=== PATIENT | female | born 1950 | race Two or more races ===

== ENCOUNTER → 2016-12-09 | Outpatient (CLI) | payer MEDICARE, BC ==
--- NOTE | 2016-12-09 09:13 | RADRPT ---
PROCEDURE: XR right knee. CLINICAL INDICATION: Pain TECHNIQUE: AP weightbearing, PA weightbearing, lateral weightbearing and sunrise views are availab le for review. COMPARISON: None available FINDINGS: There is calcific enthesopathy involving the anterior superior aspect of the patella. There is mild osteoarthrosis involving the medial tibial femoral compartment, lateral tibial femoral compartment a nd patellofemoral compartment. This is associated with mild osteophytosis. The osseous structures are otherwise normal in mineralization, architecture and alignment. No fract ures are identified. No osseous lesions are identified. The soft tissues are unremarkable. IMPRESSION: Calcific enthesopathy involving the anterior superior aspect of the patella. Mild osteoarthrosis involving the medial tibial femoral compartment, lateral tibial femoral compartm ent and patellofemoral compartment. RPTAT: HGDB .Patel Russell MD, MD Date Time Electronically viewed and signed by .Patel Russell MD, on 12/09/2016 09:12 .B/
== END | disposition home or self-care (01) ==
LOC: HKI 08:59
PROVIDERS: ATTEND Orthopaedic Surgery
DX: M17.11 Unilateral primary osteoarthritis, right knee (principal); M25.561 Pain in right knee
CPT/HCPCS: 73564; G0463

== ENCOUNTER → 2017-04-07 | Outpatient (CLI) | payer MEDICARE, BC ==
--- NOTE | 2017-04-07 16:44 | RADRPT ---
PROCEDURE: Limited x-ray of both lower extremities. CLINICAL INDICATION: Bilateral leg pain. TECHNIQUE: Single frontal view of both lower extremities was obtained from the hips to the calves. COMPARISON: Right knee radiographs dated 12/09/2016. FINDINGS: There are degenerative changes of the hips and knees with osteophytes and joint space narrowing. IMPRESSION: 1. Moderate degenerative changes of the hips and knees. RPTAT: QQ .Konstantin Hoyt MD, MD Date Time Electronically viewed and signed by .Konstantin Hoyt MD, MD on 04/07/2017 16:44 .R/
== END | disposition home or self-care (01) ==
LOC: HKI 09:40
PROVIDERS: ATTEND Orthopaedic Surgery
DX: M25.561 Pain in right knee (principal); M17.11 Unilateral primary osteoarthritis, right knee
CPT/HCPCS: 77073; G0463; 87081

== ENCOUNTER 2017-04-15 07:27 | Inpatient (IN) | payer MEDICARE, BC ==
[2017-04-15] VITALS (44 sets, daily range): BP systolic 99–166; BP diastolic 45–77; PULSE 76–86; RESP 16–19; Ht 160 cm; Wt 78.7 kg
[~2017-04-15] VITALS: Ht 160 cm; Wt 78.7 kg
[~2017-04-15 07:27] MED LIST: BUPIVACAINE LIPOSOME/PF 266 MG/20 ML VIAL INFIL ONE; CELECOXIB 400 MG PO X1 DOSE PO ONE; LACTATED RINGER'S 1,000 ML IV SCH; ONDANSETRON 4 MG INJ IV SCH; PAIN COCKTAIL - VANCOMYCIN IRR ONE; PREGABALIN 300 MG PO X1 PO ONE; SOD CHLORIDE 0.9% IV ONE; TRANEXAMIC ACID 780 MG in SOD CHLORIDE 0.9% 100 ML IVPB ONE; TRANEXAMIC ACID IV ONE; VANCOMYCIN 1 GM/NS 250 ML X1 BEFORE INCISION IVPB ONE; oxyCODONE (CR) 10 MG TAB [oxyCONTIN] X1 DOSE PO ONE; traMADOL 50 MG TAB X 1 DOSE PO ONE
[2017-04-15] MEDS ORDERED: LEVO88TA42 PO (08:04)
[2017-04-15] MEDS ORDERED: ASPI-664 PO (08:05)
[2017-04-15] MEDS ORDERED: TAMO10TA20 PO (08:10)
[2017-04-15] MEDS ORDERED: METO25TA7 PO (08:10)
[2017-04-15] MEDS ORDERED: FOL8 PO (08:11)
[2017-04-15] MEDS ORDERED: CRES10 PO (08:12)
[2017-04-15] MEDS ORDERED: FLUO10TA PO (08:13)
[2017-04-15] MEDS ORDERED: CETI-240 PO (08:14)
[2017-04-15] MEDS ORDERED: [UNRECOGNIZED DRUG - OTHER] PO (08:14)
[2017-04-15] MEDS ORDERED: EXPAREL NOTE (BUPIVICAINE LIPOSOMAL) XX SCH (09:00)
--- NOTE | 2017-04-15 10:12 | HPN ---
Date/Time of Note Date/Time of Note DATE: 04/15/17 TIME: 10:12 Interval H&P Admission Note Pt. seen H&P reviewed: No system changes No change from 04/09/17 by FRANCISCO Kennedy MD Apr 15, 2017 10:12
[2017-04-15] MEDS ORDERED: SODIUM CL BACTERIOSTATIC 30 ML INJ ONE (10:32)
[2017-04-15] MEDS ORDERED: VANCOMYCIN 1 GM INJ ONE (10:32)
[2017-04-15] MEDS ORDERED: POLYMYXIN B 500000 UNIT INJ ONE (10:32)
[2017-04-15] MEDS ORDERED: METOCLOPRAMIDE 10 MG INJ ONE (10:38)
[2017-04-15] MEDS ORDERED: DEXAMETHASONE 4 MG/ML 1 ML INJ ONE (10:38)
[2017-04-15] MEDS ORDERED: PROPOFOL 100 ML ONE (10:38)
[2017-04-15] MEDS ORDERED: MIDAZOLAM 1 MG/ML 2 ML INJ ONE (10:38)
[2017-04-15] MEDS ORDERED: FENTAnyl 50 MCG/ML VIAL ONE (10:39)
[2017-04-15] MEDS ORDERED: GENTAMICIN 80 MG INJ ONE (11:06)
[2017-04-15] MEDS ORDERED: EPHEDrine SULFATE 50 MG/5 ML SYG ONE (11:17)
[2017-04-15] MEDS ORDERED: HYDROmorphONE (0.2 MG/ML) 10ML SYG IV PRN ×3 (11:30)
[2017-04-15] MEDS ORDERED: LABETALOL HCL 20MG INJ IV PRN (11:30)
[2017-04-15] MEDS ORDERED: MEPERIDINE 25 MG INJ IV PRN (11:30)
[2017-04-15] MEDS ORDERED: hydrALAzine 20 MG INJ IV PRN (11:30)
[2017-04-15] MEDS ORDERED: ONDANSETRON 4 MG INJ IV PRN ×2 (11:30→13:30)
[2017-04-15] MEDS ORDERED: DIPHENHYDRAMINE 50 MG INJ IV PRN (11:30)
[2017-04-15] MEDS ORDERED: METOCLOPRAMIDE 10 MG INJ IV PRN (11:30)
[2017-04-15] MEDS ORDERED: VANCOMYCIN 1 GM INJ IRR ONE (11:43)
[2017-04-15] MEDS ORDERED: ONDANSETRON 4 MG INJ ONE (12:51)
--- NOTE | 2017-04-15 13:12 | OPR ---
Date/Time of Note Date/Time of Note DATE: 04/15/17 TIME: 13:11 Operative Report Preoperative Diagnosis Right Knee OA Postoperative Diagnosis Same Operation/Procedure Performed Right TKA Surgeon: FRANCISCO NIEVES MD pathology assistant: SAMI DHILLON Anesthesia: general, spinal Estimated Blood Loss: 50 - 100 ml's Specimens Bone and soft tissue Grafts/Implants Depuy TKA Complications: None FRANCISCO NIEVES MD Apr 15, 2017 13:12
[2017-04-15 13:26] LABS: HEMATOCRIT 37.2 % (37.0-47.0); HEMOGLOBIN 12.1 g/dl (12.0-16.0)
[2017-04-15] MEDS ORDERED: NACL 0.9% 3 ML SYG IV SCH (13:30)
[2017-04-15] MEDS ORDERED: MAGNESIUM HYDROXIDE 30ML CUP PO PRN (13:30)
[2017-04-15] MEDS ORDERED: oxyCODONE 5 MG TAB PO PRN (13:30)
[2017-04-15] MEDS ORDERED: HYDROmorphONE 1 MG/ML SYG IV PRN (13:30)
[2017-04-15] MEDS ORDERED: NA PHOSPHATE/BIPHOS 133 ML ENEMA PR PRN (13:30)
[2017-04-15] MEDS ORDERED: DIPHENHYDRAMINE 25 MG CAP PO PRN (13:30)
[2017-04-15] MEDS ORDERED: BISACODYL 10 MG SUPP PR PRN (13:30)
[2017-04-15] MEDS ORDERED: ASPIRIN (EC) 325 MG TAB PO ONE (13:30)
--- NOTE | 2017-04-15 13:51 | CONS ---
Date/Time of Note Date/Time of Note DATE: 04/15/17 TIME: 13:34 Assessment/Plan Assessment/Plan Additional Assessment/Plan 1. Post op right knee replacement. 2. HBP, to cont meds 3. Hx elev chol, will cont statin 4. Hypothyroid, will cont thyroid replacement 5. Will follow for sign and sxs of thromboembolic dz despite approp dvt prophylaxis Consultation Date/Type/Reason Admit Date/Time Apr 15, 2017 at 07:27 Date of Consultation: Apr 15, 2017 Reason for Consultation Medical Referring Provider: FRANCISCO NIEVES MD Hx of Present Illness Asked to eval the above after right total knee replacement now in recovery. Respiratory: No cough, No pleuritic pain, No shortness of breath Cardiovascular: No chest pain Gastrointestinal: no complaints Genitourinary: no complaints Musculoskeletal: No bone/joint pain Past Medical History Pt has hx HBP, elev chol, hypothyroidism, migraine headaches, back surgery. carpal tunnel surg. 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 Family History Significant Family History: other (+ Alz dz, kidney cancer) Social History Smoking Status: Former smoker Exam/Review of Systems Vital Signs Vitals Vital Signs Date Time Temp Pulse Resp B/P Pulse Ox O2 Delivery O2 Flow Rate FiO2 04/15/17 13:25 84 18 123/60 97 Nasal Cannula 04/15/17 13:01 98.2 Exam Neck: No jvd Respiratory: clear to auscultation Cardiovascular: regular rate and rhythm Gastrointestinal: soft Extremities: No edema (and no calf tend) Neurological: No focal weakness Results Result Diagram: 04/15/17 1321 Results 24 hrs Laboratory Tests Test 04/15/17 13:21 Hemoglobin 12.1 Hematocrit 37.2 Medications Medications Current Medications Miscellaneous Information 1 ea NOTE XX ; Start 04/15/17 at 09:00; Stop 04/15/17 at 20:00 Ondansetron HCl 4 mg 4 mg ONCE IV Last administered on 04/15/17t 09:44; Admin Dose 4 MG; Start 04/15/17 at 06:00; Stop 04/15/17 at 20:00 Lactated Ringer's (Lr) 1,000 ml @ 125 mls/hr Q8H IV ; Start 04/15/17 at 13:12 Celecoxib 200 mg 200 mg DAILY PO ; Start 04/16/17 at 09:00 Acetaminophen (Ofirmev 1000mg/ 100ml Iv) 100 ml @ 400 mls/hr Q6 IVPB ; Start at 18:00; Stop 04/16/17 at 17:59 Tramadol HCl (Ultram) 50 mg Q6 PO ; Start 04/15/17 at 18:00; Stop 04/18/17 at 17 :59 Oxycodone HCl (Roxicodone) 5 mg Q4H PRN PO PAIN LEVEL 1-3; Start 04/15/17 at 13 :30 Oxycodone HCl (Roxicodone) 10 mg Q4H PRN PO PAIN LEVEL 4-7; Start 04/15/17 at 13:30 Hydromorphone HCl 1 mg 1 mg Q3H PRN IV PAIN LEVEL 8-10; Start 04/15/17 at 13:30 Vancomycin HCl (Vancocin) 250 ml @ 125 mls/hr Q12 IVPB ; Start 04/15/17 at 21: 00; Stop 04/16/17 at 10:59 Ondansetron HCl (Zofran Inj) 4 mg Q6H PRN IV NAUSEA AND/OR VOMITING; Start at 13:30 Bisacodyl (Dulcolax Supp) 10 mg Q12H PRN [place] CONSTIPATION; Start 04/15/17 at 13: 30 Magnesium Hydroxide (Milk Of Mag) 30 ml BID PRN PO CONSTIPATION; Start at 13:30 Sodium Biphosphate/ Sodium Phosphate (Fleet Enema) 133 ml DAILY PRN [place] CONSTIPATION; Start 04/15/17 at 13:30 Docusate Sodium (Colace) 100 mg BID PO ; Start 04/15/17 at 21:00 Diphenhydramine HCl (Benadryl) 25 mg Q6H PRN PO PRURITUS; Start 04/15/17 at 13: 30 Aspirin (Ecotrin) 325 mg BID PO ; Start 04/16/17 at 09:00 Pantoprazole (Protonix Tab) 40 mg BID@06,18 PO ; Start 04/15/17 at 18:00 Pregabalin (Lyrica) 50 mg BID PO ; Start 04/15/17 at 21:00 ROMAN ZAMORA MD Apr 15, 2017 13:47
[2017-04-15 13:52] LABS: CALCIUM 8.8 mg/dl (8.4-10.2); CREATININE 0.67 mg/dl (0.44-1.00); POTASSIUM 4.3 mmol/L (3.5-5.1)
--- NOTE | 2017-04-15 14:08 | RADRPT ---
PROCEDURE: Right knee series. CLINICAL INDICATION: Postop TECHNIQUE: 2 views of the right knee are available for review. COMPARISON: None available FINDINGS: Patient is status post total right knee arthroplasty. Hardware is intact, and the alignment is jose sly anatomic. No erosions are seen. Postoperative changes including subcutaneous gas, drain, and sk in karlos are in place. IMPRESSION: 1. Total right knee arthroplasty with intact hardware. RPTAT: KK .Ibrahima Min MD, MD Date Time Electronically viewed and signed by .Ibrahima iMn MD, MD on 04/15/2017 14:08 .B/
--- NOTE | 2017-04-15 16:11 | PN ---
Date/Time of Note Date/Time of Note DATE: 04/15/17 TIME: 16:09 Assessment/Plan Lines/Catheters IV Catheter Type (from Nrsg): Peripheral IV Holley in Place (from Nrsg): Yes Assessment/Plan Assessment/Plan S/P Right TKA. Stable. -Drain -ABX -Pain meds -ASA/SCDs -OOB with PT Subjective 24 Hr Interval Summary Resting comfortably in PACU. Minimal pain. Exam/Review of Systems Vital Signs Vitals Vital Signs Date Time Temp Pulse Resp B/P Pulse Ox O2 Delivery O2 Flow Rate FiO2 04/15/17 14:59 82 18 108/69 98 Nasal Cannula 04/15/17 14:21 98.5 Exam Free Text/Dictation Hemovac: 120 cc Dressing dry 5/5 Tibialis Anterior, EHL, Gastroc Soleus, Peroneals Normal sensation Palpable DP/PT, CR < 2 Sec No distal edema XRAYS: Right TKA in good position Results Result Diagram: 04/15/17 1321 04/15/17 1321 FRANCISCO NIEVES MD Apr 15, 2017 16:11
[2017-04-15] MEDS: PANTOPRAZOLE (EC) 40 MG TAB PO SCH (18:01)
[2017-04-15] MEDS: traMADol 50 MG TAB PO SCH ×3 (18:01→23:31)
[2017-04-15] MEDS: ACETAMINOPHEN 1000MG/100ML IV 100 ML IVPB SCH ×2 (18:01→23:25)
[2017-04-15] MEDS: LACTATED RINGER'S 1,000 ML IV SCH ×2 (18:02→20:50)
[2017-04-15] MEDS: VANCOMYCIN 1 GM (PMX) 250 ML IVPB SCH (20:29)
[2017-04-15] MEDS: DOCUSATE SODIUM 100 MG CAP PO SCH (20:29)
[2017-04-15] MEDS: PREGABALIN 50 MG CAP PO SCH (20:29)
[2017-04-15] MEDS: ATORVASTATIN 40 MG TAB PO SCH (20:29)
[2017-04-16 00:30] VITALS: BP 142/63; RESP 19
[2017-04-16] MEDS: LACTATED RINGER'S 1,000 ML IV SCH ×3 (05:14→21:12)
[2017-04-16] MEDS: ACETAMINOPHEN 1000MG/100ML IV 100 ML IVPB SCH ×2 (05:14→12:29)
[2017-04-16] MEDS: PANTOPRAZOLE (EC) 40 MG TAB PO SCH ×2 (05:14→17:33)
[2017-04-16] MEDS: traMADol 50 MG TAB PO SCH ×3 (05:16→17:33)
[2017-04-16 05:35] LABS: HEMATOCRIT 31.8 % (37.0-47.0); HEMOGLOBIN 10.5 g/dl (12.0-16.0)
[2017-04-16 06:26] LABS: CALCIUM 8.4 mg/dl (8.4-10.2); CREATININE 0.7 mg/dl (0.44-1.00); POTASSIUM 4.6 mmol/L (3.5-5.1)
[2017-04-16] MEDS ORDERED: LEVOTHYROXINE 88 MCG TAB PO SCH (07:00)
--- NOTE | 2017-04-16 08:30 | CONS ---
Date/Time of Note Date/Time of Note DATE: 04/16/17 TIME: 08:28 Assessment/Plan Assessment/Plan Chief Complaint/Hosp Course Asked to eval the above after right total knee replacement now in recovery. Problems: Additional Assessment/Plan 1. Post op right knee replacement. 2. HBP, controlled 3. Hx elev chol, will cont statin 4. Hypothyroid, will cont thyroid replacement Consultation Date/Type/Reason Admit Date/Time Apr 15, 2017 at 07:27 Initial Consult Date 04/15/17 Type of Consultation: Medical Reason for Consultation Post op right knee replacement Referring Provider: FRANCISCO NIEVES MD Detailed Summary Respiratory: No shortness of breath Cardiovascular: No chest pain Gastrointestinal: no complaints Genitourinary: no complaints Musculoskeletal: bone/joint pain (mild right knee pain) Exam/Review of Systems Vital Signs Vitals Vital Signs Date Time Temp Pulse Resp B/P Pulse Ox O2 Delivery O2 Flow Rate FiO2 04/16/17 00:30 98.8 78 19 142/63 98 04/15/17 17:15 Nasal Cannula 2.0 Intake and Output 04/15/17 04/15/17 04/16/17 14:59 22:59 06:59 Intake Total 2000 ml 350 ml 2100 ml Output Total 620 ml 200 ml 1600 ml Balance 1380 ml 150 ml 500 ml Exam Neck: No jvd Respiratory: clear to auscultation Cardiovascular: regular rate and rhythm Gastrointestinal: soft Extremities: No edema (and no calf tend) Results Result Diagram: 04/16/17 0500 04/16/17 0500 Results 24 hrs Laboratory Tests Test 04/15/17 13:21 04/16/17 05:00 04/16/17 05:37 Hemoglobin 12.1 10.5 L Hematocrit 37.2 31.8 L Sodium Level 142 135 Potassium Level 4.3 4.6 Chloride Level 105 101 Carbon Dioxide Level 28 Anion Gap 14 11 Blood Urea Nitrogen 14 17 Creatinine 0.67 0.70 Glucose Level 128 114 Calcium Level 8.8 8.4 Lab Scanned Report REFERENCE LAB Medications Medications Current Medications Lactated Ringer's (Lr) 1,000 ml @ 125 mls/hr Q8H IV Last administered on t 05:14; Admin Dose 125 MLS/HR; Start 04/15/17 at 13:12 Celecoxib 200 mg 200 mg DAILY PO ; Start 04/16/17 at 09:00 Acetaminophen (Ofirmev 1000mg/ 100ml Iv) 100 ml @ 400 mls/hr Q6 IVPB Last administered on 04/16/17 05:14; Admin Dose 400 MLS/HR; Start 04/15/17 at 18:00 ; Stop 04/16/17 at 17:59 Tramadol HCl (Ultram) 50 mg Q6 PO Last administered on 04/16/17 05:16; Admin Dose 50 MG; Start 04/15/17 at 18:00; Stop 04/18/17 at 17:59 Oxycodone HCl (Roxicodone) 5 mg Q4H PRN PO PAIN LEVEL 1-3; Start 04/15/17 at 13 :30 Oxycodone HCl (Roxicodone) 10 mg Q4H PRN PO PAIN LEVEL 4-7; Start 04/15/17 at 13:30 Hydromorphone HCl 1 mg 1 mg Q3H PRN IV PAIN LEVEL 8-10; Start 04/15/17 at 13:30 Vancomycin HCl (Vancocin) 250 ml @ 125 mls/hr Q12 IVPB Last administered on 20:29; Admin Dose 125 MLS/HR; Start 04/15/17 at 21:00; Stop 04/16/17 at 10:59 Ondansetron HCl (Zofran Inj) 4 mg Q6H PRN IV NAUSEA AND/OR VOMITING; Start at 13:30 Bisacodyl (Dulcolax Supp) 10 mg Q12H PRN [place] CONSTIPATION; Start 04/15/17 at 13: 30 Magnesium Hydroxide (Milk Of Mag) 30 ml BID PRN PO CONSTIPATION; Start at 13:30 Sodium Biphosphate/ Sodium Phosphate (Fleet Enema) 133 ml DAILY PRN [place] CONSTIPATION; Start 04/15/17 at 13:30 Docusate Sodium (Colace) 100 mg BID PO Last administered on 04/15/17 20:29; Admin Dose 100 MG; Start 04/15/17 at 21:00 Diphenhydramine HCl (Benadryl) 25 mg Q6H PRN PO PRURITUS; Start 04/15/17 at 13: 30 Aspirin (Ecotrin) 325 mg BID PO ; Start 04/16/17 at 09:00 Pantoprazole (Protonix Tab) 40 mg BID@06,18 PO Last administered on 04/16/17 05:14; Admin Dose 40 MG; Start 04/15/17 at 18:00 Pregabalin (Lyrica) 50 mg BID PO Last administered on 04/15/17 20:29; Admin Dose 50 MG; Start 04/15/17 at 21:00 Fluoxetine HCl (Prozac) 10 mg DAILY PO ; Start 04/16/17 at 09:00 Folic Acid (Folic Acid) 0.8 mg DAILY PO ; Start 04/16/17 at 09:00 Metoprolol Succinate (Toprol Xl) 75 mg DAILY PO ; Start 04/16/17 at 09:00 Tamoxifen Citrate (Nolvadex) 10 mg DAILY PO ; Start 04/16/17 at 09:00 Loratadine (Claritin) 10 mg DAILY PO ; Start 04/16/17 at 09:00 Atorvastatin Calcium (Lipitor) 40 mg DAILY@21 PO ; Start 04/15/17 at 21:00 ROMAN ZAMORA MD Apr 16, 2017 08:30
[2017-04-16 08:36] VITALS: BP 189/76; RESP 19
--- NOTE | 2017-04-16 08:48 | PN ---
Date/Time of Note Date/Time of Note DATE: 04/16/17 TIME: 08:47 Assessment/Plan Lines/Catheters IV Catheter Type (from Nrsg): Peripheral IV Holley in Place (from Nrsg): Yes Assessment/Plan Assessment/Plan POD # 1. Stable. -Drain removed -OOB with PT -Pain meds -OOB with PT -ASA/SCDs -D/C to home tomorrow or Friday Subjective 24 Hr Interval Summary Resting comfortably. Minimal pain. Exam/Review of Systems Vital Signs Vitals Vital Signs Date Time Temp Pulse Resp B/P Pulse Ox O2 Delivery O2 Flow Rate FiO2 04/16/17 08:36 98.0 76 19 189/76 96 04/15/17 17:15 Nasal Cannula 2.0 Intake and Output 04/15/17 04/15/17 04/16/17 15:00 23:00 07:00 Intake Total 2000 ml 350 ml 2100 ml Output Total 620 ml 200 ml 1600 ml Balance 1380 ml 150 ml 500 ml Exam Free Text/Dictation Hemovac: 420 cc Dressing dry 5/5 Tibialis Anterior, EHL, Gastroc Soleus, Peroneals Normal sensation Palpable DP/PT, CR < 2 Sec No distal edema Results Result Diagram: 04/16/17 0500 04/16/17 0500 FRANCISCO NIEVES MD Apr 16, 2017 08:48
[2017-04-16] MEDS ORDERED: FLUOXETINE 10 MG CAP PO SCH (09:00)
[2017-04-16] MEDS: LEVOTHYROXINE 100 MCG TAB PO SCH (09:06)
[2017-04-16] MEDS: FOLIC ACID 0.4 MG TAB PO SCH (09:07)
[2017-04-16] MEDS: CELECOXIB 200 MG CAP PO SCH (09:07)
[2017-04-16] MEDS: TAMOXIFEN 10 MG TAB PO SCH (09:08)
[2017-04-16] MEDS: DOCUSATE SODIUM 100 MG CAP PO SCH ×2 (09:08→20:54)
[2017-04-16] MEDS: PREGABALIN 50 MG CAP PO SCH ×2 (09:09→21:02)
[2017-04-16] MEDS: ASPIRIN (EC) 325 MG TAB PO SCH ×2 (09:09→20:54)
[2017-04-16] MEDS: LORATADINE 10 MG TAB PO SCH (09:09)
[2017-04-16] MEDS: METOPROLOL (XL) 25 MG TAB PO SCH (09:10)
[2017-04-16] MEDS: VANCOMYCIN 1 GM (PMX) 250 ML IVPB SCH (09:13)
[2017-04-16 10:03] LABS: ADD UMIC YES; UR ASCORBIC ACID NEGATIVE (NEGATIVE); UR BILIRUBIN (Dip) NEGATIVE (NEGATIVE); UR BLOOD (Dip) 1+ mg/dL (NEGATIVE); UR CLARITY CLEAR (CLEAR); UR COLOR STRAW (YELLOW); UR GLUCOSE (Dip) NEGATIVE (NEGATIVE); UR KETONES (Dip) NEGATIVE (NEGATIVE); UR LEUKOCYTE ESTERASE (Dip) NEGATIVE Leu/ul (NEGATIVE); UR NITRITE (Dip) NEGATIVE (NEGATIVE); UR RBC 4 /HPF (0-5); UR TOTAL PROTEIN (Dip) NEGATIVE (NEGATIVE); UR UROBILINOGEN (Dip) NEGATIVE (NEGATIVE)
[2017-04-16 10:53] VITALS: BP 119/55; PULSE 82; RESP 18
--- NOTE | 2017-04-16 13:07 | OPR ---
Date/Time of Note Date/Time of Note DATE: 04/16/17 TIME: 13:02 Operative Report Preoperative Diagnosis Right Knee OA Postoperative Diagnosis Same Operation Performed Right TKA Surgeon: FRANCISCO NIEVES MD residential assistant: SAMI DHILLON Anesthesia: general, spinal Estimated Blood Loss: 50 - 100 ml's Specimens Bone and soft tissue Grafts/Implants Depuy TKA Complications: None Procedure Description DATE: 04/15/17 PREOPERATIVE DIAGNOSIS: Right knee osteoarthritis POSTOPERATIVE DIAGNOSIS: Right knee osteoarthritis OPERATION PERFORMED: Right total knee arthroplasty. SURGEON: Francisco Nievse MD DOOR TO DOOR SELLING DISTRIBUTOR: KACI Bains COMPONENTS USED: Sherwood attune size 5 femur, 4 tibial baseplate, 6 mm polyethylene, 35 patella ANESTHESIA: Spinal plus general endotracheal intubation, plus femoral nerve catheter. ANESTHESIOLOGIST: Sandra Fisher M.D. TOURNIQUET TIME: 53 minutes. ESTIMATED BLOOD LOSS: 50 mL INTRAVENOUS FLUIDS: 2,200 mL SPECIMENS: Bone and soft tissue. DRAINS: Hemovac x1. COMPLICATIONS: None. DISPOSITION: The patient tolerated the procedure well and was taken to the recovery room in stable condition. INDICATIONS: The patient is a 67-year-old woman who has developed severe osteoarthritis of her right knee. She has tried a multitude of nonsurgical means of treatment to address her pain including activity modifications, pain medications, and intra-articular injections. Despite these measures she continues to have severe pain. I felt the patient would benefit from a total knee arthroplasty. The risks, benefits, and alternatives of the procedure were explained in detail to the patient. I explained the risks of the surgery to include but not be limited to, bleeding and possible need for blood transfusion; infection; pain; stiffness; neurovascular injury with possible numbness, weakness, and/or paralysis anywhere from the knee down to the toes; fracture; instability; dislocation; wear and/or loosening of the prosthesis and possible need for future revision; blood clots; pulmonary embolism; and anesthetic complications such as heart attack, stroke, GI bleed, pneumonia, and/or . Ample time was allowed for the patient to ask questions, all of which were addressed and answered. The patient understood the risks involved and wished to proceed. Informed consent was signed prior to the procedure. PROCEDURE: The patient's right knee was initialed with a marking pen in the preoperative area to identify the correct operative site. The patient was brought to the operating room and transferred from the [facility] to the operating table where a spinal anesthetic was administered. The patient was then anesthetized and intubated. A Holley catheter was placed. A timeout was performed to confirm that the right leg was the correct operative site. The patient was given 2 g of Ancef within one hour prior to the procedure. A tourniquet was placed on the operative proximal thigh. The operative knee and lower extremity were prepped and draped in the usual sterile fashion. The operative lower extremity was elevated and exsanguinated with an Esmarch tourniquet. The proximal thigh tourniquet was inflated to 300 mmHg. The knee was flexed. A midline incision was made and carried down through the subcutaneous tissue and fat with sharp dissection. Limited medial and lateral flaps were raised. A medial parapatellar approach was performed. Synovial fluid was normal in color and consistency. The patella was everted and the knee flexed. There were severe tricompartmental osteoarthritic changes noted. A medial release was performed at the joint line to the midcoronal plane. The ACL and PCL and remnants of the menisci were excised. The stepped drill was used to open up the femoral canal which was irrigated and sucked dry. The intramedullary guide karen was passed up the femur, and the distal cutting block was pinned into place for a 6 degree valgus cut, taking 10 mm of bone off distally. The oscillating saw was used to make the cut. The tibia was subluxed anteriorly. The tibial cutoff jig was placed over the center of the talus distally and over the junction of the medial and middle third of the tibial tubercle proximally. The guide was pinned into place and the oscillating saw was used to make the cut. The tibia was sized. The extension gap was checked and accommodated a 6 mm spacer block with the knee in full extension. There was no varus or valgus instability. At this point, the femur was sized with the posterior referencing guide. Two holes were drilled in 3 degrees of external rotation. The two holes were in line with the transepicondylar axis, perpendicular to Betty's line, and in line with the tibial cutoff jig brought up with the knee flexed 90 degrees and tensed with 2 lamina spreaders, suggesting the femoral rotation was correct. The four-in-one cutting block was pinned into place. The anterior and posterior cuts and chamfer cuts were made with the oscillating saw. The flexion gap was checked and accommodated the circumflex mm spacer block at 90 degrees. There was no varus or valgus instability, suggesting the flexion and extension gaps were now equal. The central box was cut out on the femur. The tibia was drilled and punched in proper rotation. Trial components were placed into position with a trial insert. The patella was cut down to 14 mm and sized. Three holes were drilled and the trial button placed in position. With all the trials now in place, the knee was taken through range of motion and came to full extension as evidenced by the fact that with the foot on my abdomen and axial loading, there was no tendency for the knee to flex. The knee was able to be flexed to 125 degrees with good patellar tracking with no lateral tilt or subluxation. At this point, I was satisfied with the overall range of motion, stability, and patellar tracking. The trials were removed. The real components were opened. Two bags of cement were mixed, one with and one without premixed antibiotic. The knee was irrigated with antibiotic saline and sucked dry. Once the cement was in a doughy stage, the real components were cemented into place. The knee was held in full extension, and the patellar component was held with a patellar clamp. All excess cement was removed with curettes. As the cement was hardening, the synovial/capsular layer was infiltrated with a mixture of 150 mg of 0.5% Bupivacaine, 8 mg of Duramorph, 300 mcg of epinephrine, 30 mg of Toradol, 100 mcg of clonidine, 750 mg of cefuroxime and 86 mL of normal saline, followed by an injection of 266 mg of liposomal Bupivacaine. A Hemovac drain was placed in the deep portion of the wound and brought out the anterolateral thigh. Once the cement was completely hardened, the trial liner was removed, and the real insert was opened. The tourniquet was let down, and there was good hemostasis. The knee was then irrigated with a mixture of betadine/saline and then antibiotic saline with pulsatile lavage. The real insert was impacted into the tibia and reduced onto to the femur. The arthrotomy was closed with a few interrupted #1 Ethibond in a figure-of- eight fashion, and then closed in a watertight fashion with a running #2 Stratafix suture. Knee flexion was checked against gravity and came to 125 degrees. The subcutaneous layer was irrigated and closed with 2-0 Statafix, and then 3-0 Vicryl and then karlos on the skin. The wound was covered with an occlusive dressing, and secured with cast padding and a bias dressing. The drain was secured with 3-0 nylon. The sponge and needle counts were correct at the end of the case. The patient was then awakened, extubated, and taken to the recovery room in stable condition. FRANCISCO NIEVES MD Apr 16, 2017 13:07
--- NOTE | 2017-04-16 13:32 | PN ---
Date/Time of Note Date/Time of Note DATE: 04/16/17 TIME: 13:31 Assessment/Plan VTE Prophylaxis VTE Prophylaxis Intervention: ambulation Lines/Catheters IV Catheter Type (from Nrsg): Peripheral IV Urinary Cath still in place: Yes Subjective 24 Hr Interval Summary Free Text/Dictation anethesiA note: A 67 year female s/p TKR under GA and spinal POD #1 is doing well, no pain, N/V , headache, back pain, itching. back is clean. care per surgery Exam/Review of Systems Vital Signs Vitals Vital Signs Date Time Temp Pulse Resp B/P Pulse Ox O2 Delivery O2 Flow Rate FiO2 04/16/17 10:53 82 18 119/55 99 Room Air 04/16/17 08:36 98.0 04/15/17 17:15 2.0 Intake and Output 04/15/17 04/15/17 04/16/17 15:00 23:00 07:00 Intake Total 2000 ml 350 ml 2100 ml Output Total 620 ml 200 ml 1600 ml Balance 1380 ml 150 ml 500 ml Results Result Diagram: 04/16/17 0500 04/16/17 0500 Results 24 hrs Laboratory Tests Test 04/16/17 05:00 04/16/17 05:37 04/16/17 07:35 Hemoglobin 10.5 L Hematocrit 31.8 L Sodium Level 135 Potassium Level 4.6 Chloride Level 101 Carbon Dioxide Level 28 Anion Gap 11 Blood Urea Nitrogen 17 Creatinine 0.70 Glucose Level 114 Calcium Level 8.4 Lab Scanned Report REFERENCE LAB Urine Color STRAW Urine Clarity CLEAR Urine pH 6.0 Urine Specific [place] 1.010 Urine Ketones NEGATIVE Urine Nitrite NEGATIVE Urine Bilirubin NEGATIVE Urine Urobilinogen NEGATIVE Urine Leukocyte Esterase NEGATIVE Urine Microscopic RBC 4 Urine Microscopic WBC 2 Urine Hemoglobin 1+ H Urine Glucose NEGATIVE Urine Total Protein NEGATIVE Medications Medications Current Medications Lactated Ringer's (Lr) 1,000 ml @ 125 mls/hr Q8H IV Last administered on 05:14; Admin Dose 125 MLS/HR; Start 04/15/17 at 13:12 Celecoxib 200 mg 200 mg DAILY PO Last administered on 04/16/17 09:07; Admin Dose 200 MG; Start 04/16/17 at 09:00 Acetaminophen (Ofirmev 1000mg/ 100ml Iv) 100 ml @ 400 mls/hr Q6 IVPB Last administered on 04/16/17 12:29; Admin Dose 400 MLS/HR; Start 04/15/17 at 18:00 ; Stop 04/16/17 at 17:59 Tramadol HCl (Ultram) 50 mg Q6 PO Last administered on 04/16/17 12:29; Admin Dose 50 MG; Start 04/15/17 at 18:00; Stop 04/18/17 at 17:59 Oxycodone HCl (Roxicodone) 5 mg Q4H PRN PO PAIN LEVEL 1-3; Start 04/15/17 at 13 :30 Oxycodone HCl (Roxicodone) 10 mg Q4H PRN PO PAIN LEVEL 4-7; Start 04/15/17 at 13:30 Hydromorphone HCl (Dilaudid) 1 mg Q3H PRN IV PAIN LEVEL 8-10; Start 04/15/17 at 13:30 Ondansetron HCl (Zofran Inj) 4 mg Q6H PRN IV NAUSEA AND/OR VOMITING; Start at 13:30 Bisacodyl (Dulcolax Supp) 10 mg Q12H PRN [place] CONSTIPATION; Start 04/15/17 at 13: 30 Magnesium Hydroxide (Milk Of Mag) 30 ml BID PRN PO CONSTIPATION; Start at 13:30 Sodium Biphosphate/ Sodium Phosphate (Fleet Enema) 133 ml DAILY PRN [place] CONSTIPATION; Start 04/15/17 at 13:30 Docusate Sodium (Colace) 100 mg BID PO Last administered on 04/16/17 09:08; Admin Dose 100 MG; Start 04/15/17 at 21:00 Diphenhydramine HCl (Benadryl) 25 mg Q6H PRN PO PRURITUS; Start 04/15/17 at 13: 30 Aspirin (Ecotrin) 325 mg BID PO Last administered on 04/16/17 09:09; Admin Dose 325 MG; Start 04/16/17 at 09:00 Pantoprazole (Protonix Tab) 40 mg BID@,18 PO Last administered on 04/16/17 05:14; Admin Dose 40 MG; Start 04/15/17 at 18:00 Pregabalin (Lyrica) 50 mg BID PO Last administered on 04/16/17 09:09; Admin Dose 50 MG; Start 04/15/17 at 21:00 Folic Acid (Folic Acid) 0.8 mg DAILY PO Last administered on 04/16/17 09:07; Admin Dose 0.8 MG; Start 04/16/17 at 09:00 Metoprolol Succinate (Toprol Xl) 75 mg DAILY PO Last administered on 04/16/17 09:10; Admin Dose 75 MG; Start 04/16/17 at 09:00 Tamoxifen Citrate (Nolvadex) 10 mg DAILY PO Last administered on 04/16/17 09: 08; Admin Dose 10 MG; Start 04/16/17 at 09:00 Loratadine (Claritin) 10 mg DAILY PO Last administered on 04/16/17 09:09; Admin Dose 10 MG; Start 04/16/17 at 09:00 Atorvastatin Calcium (Lipitor) 40 mg DAILY@21 PO ; Start 04/15/17 at 21:00 Fluoxetine HCl (Prozac) 10 mg HS PO ; Start 04/16/17 at 21:00 RG CASTELLANOS MD Apr 16, 2017 13:32
[2017-04-16 20:10] VITALS: BP 135/62; RESP 18
[2017-04-16] MEDS: FLUOXETINE 10 MG CAP PO SCH (20:54)
[2017-04-16] MEDS: ATORVASTATIN 40 MG TAB PO SCH (21:00)
[2017-04-16] MEDS: ZOLPIDEM 5 MG TAB PO PRN (22:42)
[2017-04-17 05:12] LABS: HEMATOCRIT 28.4 % (37.0-47.0); HEMOGLOBIN 9.2 g/dl (12.0-16.0)
[2017-04-17] MEDS: LACTATED RINGER'S 1,000 ML IV SCH ×3 (05:15→21:12)
[2017-04-17 05:59] LABS: CALCIUM 8.4 mg/dl (8.4-10.2); CREATININE 0.76 mg/dl (0.44-1.00); POTASSIUM 3.9 mmol/L (3.5-5.1)
[2017-04-17] MEDS: PANTOPRAZOLE (EC) 40 MG TAB PO SCH ×2 (06:00→17:37)
[2017-04-17] MEDS: traMADol 50 MG TAB PO SCH ×4 (06:00→17:37)
[2017-04-17] MEDS: LEVOTHYROXINE 100 MCG TAB PO SCH (07:50)
[2017-04-17 08:00] VITALS: BP 156/65; RESP 18
[2017-04-17] MEDS: ASPIRIN (EC) 325 MG TAB PO SCH ×2 (09:39→20:54)
[2017-04-17] MEDS: FOLIC ACID 0.4 MG TAB PO SCH (09:39)
[2017-04-17] MEDS: CELECOXIB 200 MG CAP PO SCH (09:39)
[2017-04-17] MEDS: LORATADINE 10 MG TAB PO SCH (09:39)
[2017-04-17] MEDS: DOCUSATE SODIUM 100 MG CAP PO SCH ×2 (09:39→20:54)
[2017-04-17] MEDS: METOPROLOL (XL) 25 MG TAB PO SCH (09:40)
[2017-04-17] MEDS: TAMOXIFEN 10 MG TAB PO SCH (09:52)
[2017-04-17] MEDS: PREGABALIN 50 MG CAP PO SCH ×2 (10:07→21:00)
--- NOTE | 2017-04-17 11:50 | CONS ---
Date/Time of Note Date/Time of Note DATE: 04/17/17 TIME: 11:48 Assessment/Plan Assessment/Plan Chief Complaint/Hosp Course Asked to eval the above after right total knee replacement now in recovery. Problems: Additional Assessment/Plan 1. Post op right knee replacement, doing well 2. HBP, controlled 3. Hx elev chol,statin was continued 4. Hypothyroid, will cont thyroid replacement 5. Mild sore throat, neg exam, will observe Consultation Date/Type/Reason Admit Date/Time Apr 15, 2017 at 07:27 Initial Consult Date 04/15/17 Type of Consultation: Medical Referring Provider: FRANCISCO NIEVES MD Detailed Summary ENT: sore throat (mild without diff swallowing) Respiratory: cough (mild and not productive), shortness of breath Cardiovascular: No chest pain Gastrointestinal: no complaints Genitourinary: no complaints Musculoskeletal: bone/joint pain (mild-mod right knee pain) Exam/Review of Systems Vital Signs Vitals Vital Signs Date Time Temp Pulse Resp B/P Pulse Ox O2 Delivery O2 Flow Rate FiO2 04/17/17 08:00 97.6 72 18 156/65 98 04/16/17 10:53 Room Air 04/15/17 17:15 2.0 Intake and Output 04/16/17 04/16/17 04/17/17 15:00 23:00 07:00 Intake Total 350 ml 2000 ml 1500 ml Balance 350 ml 2000 ml 1500 ml Exam Neck: non-tender, No jvd Respiratory: clear to auscultation Cardiovascular: regular rate and rhythm Gastrointestinal: soft Extremities: No edema (and no calf tend) Results Result Diagram: 04/17/17 0420 04/17/17 0420 Results 24 hrs Laboratory Tests Test 04/17/17 04:20 Hemoglobin 9.2 L Hematocrit 28.4 L Sodium Level 141 Potassium Level 3.9 Chloride Level 103 Carbon Dioxide Level 30 Anion Gap 12 Blood Urea Nitrogen 20 Creatinine 0.76 Glucose Level 104 Calcium Level 8.4 Medications Medications Current Medications Lactated Ringer's (Lr) 1,000 ml @ 125 mls/hr Q8H IV Last administered on 05:15; Admin Dose 125 MLS/HR; Start 04/15/17 at 13:12 Celecoxib (Celebrex) 200 mg DAILY PO Last administered on 04/17/17 09:39; Admin Dose 200 MG; Start 04/16/17 at 09:00 Tramadol HCl (Ultram) 50 mg Q6 PO Last administered on 04/17/17 06:00; Admin Dose 50 MG; Start 04/15/17 at 18:00; Stop 04/18/17 at 17:59 Oxycodone HCl (Roxicodone) 5 mg Q4H PRN PO PAIN LEVEL 1-3 Last administered on 04/16/17 20:57; Admin Dose 5 MG; Start 04/15/17 at 13:30 Oxycodone HCl (Roxicodone) 10 mg Q4H PRN PO PAIN LEVEL 4-7; Start 04/15/17 at 13:30 Hydromorphone HCl (Dilaudid) 1 mg Q3H PRN IV PAIN LEVEL 8-10; Start 04/15/17 at 13:30 Ondansetron HCl (Zofran Inj) 4 mg Q6H PRN IV NAUSEA AND/OR VOMITING; Start at 13:30 Bisacodyl (Dulcolax Supp) 10 mg Q12H PRN [place] CONSTIPATION; Start 04/15/17 at 13: 30 Magnesium Hydroxide (Milk Of Mag) 30 ml BID PRN PO CONSTIPATION; Start at 13:30 Sodium Biphosphate/ Sodium Phosphate (Fleet Enema) 133 ml DAILY PRN [place] CONSTIPATION; Start 04/15/17 at 13:30 Docusate Sodium (Colace) 100 mg BID PO Last administered on 04/17/17 09:39; Admin Dose 100 MG; Start 04/15/17 at 21:00 Diphenhydramine HCl (Benadryl) 25 mg Q6H PRN PO PRURITUS; Start 04/15/17 at 13: 30 Aspirin (Ecotrin) 325 mg BID PO Last administered on 04/17/17 09:39; Admin Dose 325 MG; Start 04/16/17 at 09:00 Pantoprazole (Protonix Tab) 40 mg BID@18 PO Last administered on 04/17/17 06:00; Admin Dose 40 MG; Start 04/15/17 at 18:00 Pregabalin (Lyrica) 50 mg BID PO Last administered on 04/17/17 10:07; Admin Dose 50 MG; Start 04/15/17 at 21:00 Folic Acid (Folic Acid) 0.8 mg DAILY PO Last administered on 04/17/17 09:39; Admin Dose 0.8 MG; Start 04/16/17 at 09:00 Metoprolol Succinate (Toprol Xl) 75 mg DAILY PO Last administered on 04/17/17 09:40; Admin Dose 75 MG; Start 04/16/17 at 09:00 Tamoxifen Citrate (Nolvadex) 10 mg DAILY PO Last administered on 04/17/17 09: 52; Admin Dose 10 MG; Start 04/16/17 at 09:00 Loratadine (Claritin) 10 mg DAILY PO Last administered on 04/17/17 09:39; Admin Dose 10 MG; Start 04/16/17 at 09:00 Atorvastatin Calcium (Lipitor) 40 mg DAILY@21 PO ; Start 04/15/17 at 21:00 Fluoxetine HCl (Prozac) 10 mg HS PO Last administered on 04/16/17 20:54; Admin Dose 10 MG; Start 04/16/17 at 21:00 Zolpidem Tartrate (Ambien) 5 mg HS PRN PO INSOMNIA Last administered on 22:42; Admin Dose 5 MG; Start 04/16/17 at 22:00 ROMAN ZAMORA MD Apr 17, 2017 11:49
[2017-04-17 19:25] VITALS: BP 146/62; RESP 18
--- NOTE | 2017-04-17 20:14 | PN ---
Date/Time of Note Date/Time of Note DATE: 04/17/17 TIME: 20:12 Assessment/Plan Lines/Catheters IV Catheter Type (from Nrsg): Peripheral IV Holley in Place (from Nrsg): Yes Assessment/Plan Assessment/Plan POD # 2. Stable. Some mild redness over lower leg away from incision. May be early cellulitis. -Start Vanco -Ice and elevate -Continue pain meds -OOB with PT -ASA/SCDs -Check CBC in AM Subjective 24 Hr Interval Summary Having some more pain today. Oxycodone helping. Exam/Review of Systems Vital Signs Vitals Vital Signs Date Time Temp Pulse Resp B/P Pulse Ox O2 Delivery O2 Flow Rate FiO2 04/17/17 08:00 97.6 72 18 156/65 98 04/16/17 10:53 Room Air 04/15/17 17:15 2.0 Intake and Output 04/16/17 04/16/17 04/17/17 15:00 23:00 07:00 Intake Total 350 ml 2000 ml 1500 ml Balance 350 ml 2000 ml 1500 ml Exam Free Text/Dictation Dressing dry Incision clean, dry, and intact without redness or drainage. Some bruising Some redness over anterior lower leg away from incision 5/5 Tibialis Anterior, EHL, Gastroc Soleus, Peroneals Normal sensation Palpable DP/PT, CR < 2 Sec No distal edema Results Result Diagram: 04/17/170 04/17/17419 FRANCISCO NIEVES MD Apr 17, 2017 20:13
[2017-04-17] MEDS ORDERED: TRAM50TA2 PO (20:18)
[2017-04-17] MEDS ORDERED: OXYC-481 PO (20:18)
[2017-04-17] MEDS ORDERED: ASPI325T32 PO (20:18)
[2017-04-17] MEDS ORDERED: PANT40TA4 PO (20:18)
[2017-04-17] MEDS ORDERED: PREG50CA PO (20:18)
[2017-04-17] MEDS ORDERED: VANCOMYCIN IV PER PHARMACY XX SCH (20:30)
[2017-04-17] MEDS: FLUOXETINE 10 MG CAP PO SCH (20:54)
[2017-04-17] MEDS: oxyCODONE 5 MG TAB PO PRN (20:55)
[2017-04-17] MEDS: ATORVASTATIN 40 MG TAB PO SCH (21:00)
[2017-04-17] MEDS ORDERED: VANCOMYCIN 1.5 GM in SOD CHLORIDE 0.9% 250 ML IVPB SCH (22:00)
[2017-04-17] MEDS: ZOLPIDEM 5 MG TAB PO PRN (22:12)
[2017-04-18] MEDS: oxyCODONE 5 MG TAB PO PRN (04:00)
[2017-04-18] MEDS: LACTATED RINGER'S 1,000 ML IV SCH ×3 (05:12→22:03)
[2017-04-18 05:27] LABS: BASOPHILS % 0.3 % (0.0-2.0); EOSINOPHILS # 0.2 10^3/ul (0.0-0.5); EOSINOPHILS % 3.5 % (0.0-7.0); HEMATOCRIT 28.3 % (37.0-47.0); HEMOGLOBIN 9.2 g/dl (12.0-16.0); LYMPHOCYTES # 1.4 10^3/ul (0.8-2.9); LYMPHOCYTES % 20.7 % (15.0-51.0); MEAN CORPUSCULAR HEMOGLOBIN 29.6 pg (29.0-33.0); MEAN CORPUSCULAR HGB CONC 32.5 g/dl (32.0-37.0); MEAN PLATELET VOLUME 10.9 fl (7.4-10.4); MONOCYTE # 0.7 10^3/ul (0.3-0.9); NEUTROPHIL # 4.5 10^3/ul (1.6-7.5); NEUTROPHILS % 64.8 % (39.0-77.0); PLATELET COUNT 149 10^3/UL (140-415); RED BLOOD COUNT 3.11 10^6/ul (4.20-5.40); RED CELL DISTRIBUTION WIDTH 12.8 % (11.5-14.5); WHITE BLOOD COUNT 6.9 10^3/ul (4.8-10.8)
[2017-04-18 05:46] LABS: CALCIUM 8.1 mg/dl (8.4-10.2); CREATININE 0.72 mg/dl (0.44-1.00)
[2017-04-18 06:00] LABS: ADD SCAN DIFF NO
[2017-04-18] MEDS: PANTOPRAZOLE (EC) 40 MG TAB PO SCH ×2 (06:11→18:07)
[2017-04-18] MEDS: traMADol 50 MG TAB PO SCH ×3 (06:11→12:24)
[2017-04-18 08:00] VITALS: BP 138/65; RESP 18
--- NOTE | 2017-04-18 08:38 | CONS ---
Date/Time of Note Date/Time of Note DATE: 04/18/17 TIME: 08:36 Assessment/Plan Assessment/Plan Chief Complaint/Hosp Course Asked to eval the above after right total knee replacement now in recovery. Problems: Additional Assessment/Plan 1. Post op right knee replacement with now echymoses, less likely infection, wbc noted 2. HBP, controlled 3. Hx elev chol,statin was continued 4. Hypothyroid, will cont thyroid replacement 5. Sl cough and sore throat has resolved Consultation Date/Type/Reason Admit Date/Time Apr 15, 2017 at 07:27 Initial Consult Date 04/15/17 Type of Consultation: Medical Referring Provider: FRANCISCO NIEVES MD Detailed Summary Respiratory: No shortness of breath Cardiovascular: No chest pain, No orthopenea Gastrointestinal: no complaints Genitourinary: no complaints Musculoskeletal: bone/joint pain (mild-mod right knee pain) Exam/Review of Systems Vital Signs Vitals Vital Signs Date Time Temp Pulse Resp B/P Pulse Ox O2 Delivery O2 Flow Rate FiO2 04/18/17 08:00 98.4 80 18 138/65 92 04/16/17 10:53 Room Air 04/15/17 17:15 2.0 Intake and Output 04/17/17 04/17/17 04/18/17 15:00 23:00 07:00 Intake Total 1000 ml 1180 ml 750 ml Output Total 1300 ml Balance 1000 ml -120 ml 750 ml Exam Neck: No jvd Respiratory: clear to auscultation Cardiovascular: regular rate and rhythm Gastrointestinal: soft Musculoskeletal: joint tenderness (right knee is sl swell, echymoses noted, not tender) Results Result Diagram: 04/18/17 0425 04/18/17 0446 Results 24 hrs Laboratory Tests Test 04/18/17 04:25 04/18/17 04:46 White Blood Count 6.9 Red Blood Count 3.11 L Hemoglobin 9.2 L Hematocrit 28.3 L Mean Corpuscular Volume 91.0 Mean Corpuscular Hemoglobin 29.6 Mean Corpuscular Hemoglobin Concent 32.5 Red Cell Distribution Width 12.8 Platelet Count 149 Mean Platelet Volume 10.9 H Neutrophils % 64.8 Lymphocytes % 20.7 Monocytes % 10.0 Eosinophils % 3.5 Basophils % 0.3 Nucleated Red Blood Cells % 0.0 Neutrophils # 4.5 Lymphocytes # 1.4 Monocytes # 0.7 Eosinophils # 0.2 Basophils # 0.0 Nucleated Red Blood Cells # 0.0 Sodium Level 135 Potassium Level 4.0 Chloride Level 98 Carbon Dioxide Level 31 Anion Gap 10 Blood Urea Nitrogen 17 Creatinine 0.72 Glucose Level 104 Calcium Level 8.1 L Medications Medications Current Medications Lactated Ringer's (Lr) 1,000 ml @ 125 mls/hr Q8H IV Last administered on 05:15; Admin Dose 125 MLS/HR; Start 04/15/17 at 13:12 Celecoxib (Celebrex) 200 mg DAILY PO Last administered on 04/17/17 09:39; Admin Dose 200 MG; Start 04/16/17 at 09:00 Tramadol HCl (Ultram) 50 mg Q6 PO Last administered on 04/18/17 06:11; Admin Dose 50 MG; Start 04/15/17 at 18:00; Stop 04/18/17 at 17:59 Oxycodone HCl (Roxicodone) 5 mg Q4H PRN PO PAIN LEVEL 1-3 Last administered on 04/16/17 20:57; Admin Dose 5 MG; Start 04/15/17 at 13:30 Oxycodone HCl (Roxicodone) 10 mg Q4H PRN PO PAIN LEVEL 4-7 Last administered on 04/18/17 04:00; Admin Dose 10 MG; Start 04/15/17 at 13:30 Hydromorphone HCl (Dilaudid) 1 mg Q3H PRN IV PAIN LEVEL 8-10; Start 04/15/17 at 13:30 Ondansetron HCl (Zofran Inj) 4 mg Q6H PRN IV NAUSEA AND/OR VOMITING; Start at 13:30 Bisacodyl (Dulcolax Supp) 10 mg Q12H PRN [place] CONSTIPATION; Start 04/15/17 at 13: 30 Magnesium Hydroxide (Milk Of Mag) 30 ml BID PRN PO CONSTIPATION; Start at 13:30 Sodium Biphosphate/ Sodium Phosphate (Fleet Enema) 133 ml DAILY PRN [place] CONSTIPATION; Start 04/15/17 at 13:30 Docusate Sodium (Colace) 100 mg BID PO Last administered on 04/17/17 20:54; Admin Dose 100 MG; Start 04/15/17 at 21:00 Diphenhydramine HCl (Benadryl) 25 mg Q6H PRN PO PRURITUS; Start 04/15/17 at 13: 30 Aspirin (Ecotrin) 325 mg BID PO Last administered on 04/17/17 20:54; Admin Dose 325 MG; Start 04/16/17 at 09:00 Pantoprazole (Protonix Tab) 40 mg BID@06,18 PO Last administered on 04/18/17 06:11; Admin Dose 40 MG; Start 04/15/17 at 18:00 Pregabalin (Lyrica) 50 mg BID PO Last administered on 04/17/17 10:07; Admin Dose 50 MG; Start 04/15/17 at 21:00 Folic Acid (Folic Acid) 0.8 mg DAILY PO Last administered on 04/17/17 09:39; Admin Dose 0.8 MG; Start 04/16/17 at 09:00 Metoprolol Succinate (Toprol Xl) 75 mg DAILY PO Last administered on 04/17/17 09:40; Admin Dose 75 MG; Start 04/16/17 at 09:00 Tamoxifen Citrate (Nolvadex) 10 mg DAILY PO Last administered on 04/17/17 09: 52; Admin Dose 10 MG; Start 04/16/17 at 09:00 Loratadine (Claritin) 10 mg DAILY PO Last administered on 04/17/17 09:39; Admin Dose 10 MG; Start 04/16/17 at 09:00 Atorvastatin Calcium (Lipitor) 40 mg DAILY@21 PO ; Start 04/15/17 at 21:00 Fluoxetine HCl (Prozac) 10 mg HS PO Last administered on 04/17/17 20:54; Admin Dose 10 MG; Start 04/16/17 at 21:00 Zolpidem Tartrate 5 mg 5 mg HS PRN PO INSOMNIA Last administered on 04/17/17 22:12; Admin Dose 5 MG; Start 04/16/17 at 22:00 Vancomycin HCl (Vancocin) 250 ml @ 125 mls/hr Q12H IVPB ; Start 04/18/17 at 10: 00 ROMAN ZAMORA MD Apr 18, 2017 08:37
--- NOTE | 2017-04-18 08:52 | PN ---
Date/Time of Note Date/Time of Note DATE: 04/18/17 TIME: 08:50 Assessment/Plan Lines/Catheters IV Catheter Type (from Nrsg): Peripheral IV Holley in Place (from Nrsg): Yes Assessment/Plan Assessment/Plan POD # 3. Stable. -Continue Vanco -Check doppler to r/o DVT -Elevate and ice -Recheck CBC in AM tomorrow -If swelling decreases and redness decreases, may d/c to home tomorrow -D/C on Bactrim and Doxycycline if ok with her primary MD -ASA/SCDs Subjective 24 Hr Interval Summary Resting comfortably. Some pain, but well controlled with pain meds. Exam/Review of Systems Vital Signs Vitals Vital Signs Date Time Temp Pulse Resp B/P Pulse Ox O2 Delivery O2 Flow Rate FiO2 04/18/17 08:00 98.4 80 18 138/65 92 04/16/17 10:53 Room Air 04/15/17 17:15 2.0 Intake and Output 04/17/17 04/17/17 04/18/17 15:00 23:00 07:00 Intake Total 1000 ml 1180 ml 750 ml Output Total 1300 ml Balance 1000 ml -120 ml 750 ml Exam Free Text/Dictation Dressing dry Incision clean, dry, and intact without redness or drainage, some diffuse bruising Slight redness over lower leg away from incision 5/5 Tibialis Anterior, EHL, Gastroc Soleus, Peroneals Normal sensation Palpable DP/PT, CR < 2 Sec No distal edema Results Result Diagram: 04/18/17 0425 04/18/17 0446 FRANCISCO NIEVES MD Apr 18, 2017 08:52
[2017-04-18] MEDS: PREGABALIN 50 MG CAP PO SCH ×2 (09:12→21:49)
[2017-04-18] MEDS: CELECOXIB 200 MG CAP PO SCH (09:12)
[2017-04-18] MEDS: FOLIC ACID 0.4 MG TAB PO SCH (09:13)
[2017-04-18] MEDS: LORATADINE 10 MG TAB PO SCH (09:13)
[2017-04-18] MEDS: LEVOTHYROXINE 100 MCG TAB PO SCH (09:13)
[2017-04-18] MEDS: DOCUSATE SODIUM 100 MG CAP PO SCH ×2 (09:14→21:49)
[2017-04-18] MEDS: METOPROLOL (XL) 25 MG TAB PO SCH (09:14)
[2017-04-18] MEDS: ASPIRIN (EC) 325 MG TAB PO SCH ×2 (09:14→21:49)
[2017-04-18] MEDS ORDERED: VANCOMYCIN 1 GM in NS 250 ML IVPB SCH (10:00)
--- NOTE | 2017-04-18 10:07 | RADRPT ---
PROCEDURE: US DVT. CLINICAL INDICATION: Status post right total knee replacement. Evaluate for deep venous thrombosis . TECHNIQUE: Multiple longitudinal and transverse images of the right lower extremity veins were obt ained with pelayo scale and color Doppler imaging. 2D grayscale measurements with compression, color Doppler flow, and augmentation was performed. The calf veins were interrogated as well. COMPARISON: No prior studies are available for comparison. FINDINGS: The right common femoral, superficial femoral and popliteal veins are normally compressible througho ut. Color flow demonstrates normal filling of the vessel. Normal waveforms are visualized and ther e is normal response to augmentation. IMPRESSION: 1. No evidence of a deep vein thrombosis involving the right lower extremity. Note: A call report was given to do knees Danika in doctor's in the office on 04/18/2017 10:04:13 AM. RPTAT: [facility] Physician Marco Date Time Electronically viewed and signed by Physician Marco on 04/18/2017 10:06 BERONICA/
[2017-04-18] MEDS: TAMOXIFEN 10 MG TAB PO SCH (10:39)
[2017-04-18] MEDS: VANCOMYCIN 750 MG in SOD CHLORIDE 0.9% 150 ML IVPB SCH ×2 (10:47→22:04)
[2017-04-18] MEDS: ATORVASTATIN 40 MG TAB PO SCH (21:00)
[2017-04-18] MEDS: FLUOXETINE 10 MG CAP PO SCH (21:49)
[2017-04-19] MEDS: oxyCODONE 5 MG TAB PO PRN ×3 (00:18→09:13)
[2017-04-19] MEDS: PANTOPRAZOLE (EC) 40 MG TAB PO SCH (05:00)
[2017-04-19] MEDS: LEVOTHYROXINE 100 MCG TAB PO SCH (05:00)
[2017-04-19 05:09] LABS: BASOPHILS % 0.4 % (0.0-2.0); EOSINOPHILS # 0.2 10^3/ul (0.0-0.5); HEMATOCRIT 27.6 % (37.0-47.0); LYMPHOCYTES # 1.4 10^3/ul (0.8-2.9); LYMPHOCYTES % 18.4 % (15.0-51.0); MEAN CORPUSCULAR HGB CONC 32.6 g/dl (32.0-37.0); MEAN PLATELET VOLUME 10.9 fl (7.4-10.4); MONOCYTE # 0.7 10^3/ul (0.3-0.9); NEUTROPHIL # 5.2 10^3/ul (1.6-7.5); NEUTROPHILS % 69.5 % (39.0-77.0); PLATELET COUNT 166 10^3/UL (140-415); RED CELL DISTRIBUTION WIDTH 12.8 % (11.5-14.5); WHITE BLOOD COUNT 7.5 10^3/ul (4.8-10.8)
[2017-04-19] MEDS: LACTATED RINGER'S 1,000 ML IV SCH (05:12)
[2017-04-19 05:16] LABS: ADD SCAN DIFF NO
[2017-04-19 05:30] LABS: CALCIUM 8.7 mg/dl (8.4-10.2); CREATININE 0.68 mg/dl (0.44-1.00)
[2017-04-19 05:32] LABS: IRON 16 ug/dl (35-150)
[2017-04-19 05:41] LABS: TOTAL IRON BINDING CAPACITY 269 ug/dl (241-421)
[2017-04-19 08:09] VITALS: BP 126/59; RESP 22
--- NOTE | 2017-04-19 08:58 | PDOCDIS ---
Discharge Instructions DIAGNOSIS Discharge Diagnosis Status post right total knee arthroplasty CONDITION Patient Condition: Stable HOME CARE INSTRUCTIONS: Diet Instructions: Regular ACTIVITY: Activity Restrictions: Slowly Increase Activity Rest between Activity Avoid heavy lifting No Sexual Activity Do not Drive Do not operate Machinery Do not operate Power Tool Avoid Heavy Housework Keep Limb Elevated (With ice modalities at rest.) Weight Bearing (As tolerated with front wheeled walker) Bathing Restrictions: Shower (Using Tegaderm with pad. Apply prior to shower. After shower, let air dry or you may dab dry. Repeat the steps each day prior to shower.) FOLLOW UP/APPOINTMENTS Follow-up Plan Follow-up 10 days postoperatively for evaluation and staple removal. HOWARD TABOR PA-C Apr 19, 2017 08:58
[2017-04-19] MEDS: LORATADINE 10 MG TAB PO SCH (08:59)
[2017-04-19] MEDS: ASPIRIN (EC) 325 MG TAB PO SCH (08:59)
[2017-04-19] MEDS: CELECOXIB 200 MG CAP PO SCH (08:59)
[2017-04-19] MEDS: PREGABALIN 50 MG CAP PO SCH (08:59)
[2017-04-19] MEDS: FOLIC ACID 0.4 MG TAB PO SCH (08:59)
[2017-04-19] MEDS: DOCUSATE SODIUM 100 MG CAP PO SCH (08:59)
[2017-04-19] MEDS: METOPROLOL (XL) 25 MG TAB PO SCH (09:00)
--- NOTE | 2017-04-19 09:01 | PN ---
Date/Time of Note Date/Time of Note DATE: 04/19/17 TIME: 08:58 Assessment/Plan VTE Prophylaxis VTE Prophylaxis Intervention: ambulation, SCD's, other (Aspirin 325 mg twice daily) Lines/Catheters IV Catheter Type (from Nrsg): Saline Lock Holley in Place (from Nrsg): No Assessment/Plan Assessment/Plan -Dress change performed today -ASA for DVT Prophylaxis x 6 weeks outpatient discussed. -Continue monitoring as outpatient on discharge -Follow-up at scheduled postop outpatient appointment or sooner if there is any issue. -Tegaderm dressings given with specific instructions to use as outpatient to keep wound dry until karlos are moved around 10 days. -Patient Stable -Continue Bactrim upon discharge for ongoing antibiotic coverage. -Discharge to Home with home health Subjective 24 Hr Interval Summary 67-year-old female postop day 4 status post right total knee arthroplasty. Patient has complaints of 2/10 pain at rest with 6/10 pain with movement such as weightbearing. Patient states that pain medications have been effective in controlling pain. Weightbearing as tolerated with front wheeled walker. Patient will be discharged with Bactrim for ongoing antibiotic coverage. Patient states that she is ready to go home today. Pain Control: moderate Exam/Review of Systems Vital Signs Vitals Vital Signs Date Time Temp Pulse Resp B/P Pulse Ox O2 Delivery O2 Flow Rate FiO2 04/19/17 08:09 98.4 82 22 126/59 92 04/16/17 10:53 Room Air 04/15/17 17:15 2.0 Intake and Output 04/18/17 04/18/17 04/19/17 15:00 23:00 07:00 Intake Total 150 ml 2225 ml 800 ml Balance 150 ml 2225 ml 800 ml Exam Free Text/Dictation -Incision: Clean, Dry and Intact without any redness or drainage -5/5 Tibialis Anterior, EHL Gastrocnemius/Soleus and Peroneals -Normal Sensation -Palpable DP/PT, Capillary Refill <2 secs -No Distal Edema -Negative Fabienne Sign/No calf pain -Toes Freely Movable Constitutional: alert, oriented, well developed Results Result Diagram: 04/19/17 0430 04/19/17 0430 HOWARD TABOR PA-C Apr 19, 2017 09:01
[2017-04-19] MEDS: TAMOXIFEN 10 MG TAB PO SCH (09:11)
--- NOTE | 2017-04-19 10:48 | CONS ---
Date/Time of Note Date/Time of Note DATE: 04/19/17 TIME: 10:47 Assessment/Plan Assessment/Plan Chief Complaint/Hosp Course Asked to eval the above after right total knee replacement now in recovery. Problems: Additional Assessment/Plan 1. Post op right knee surgery with now less swelling, doubt infection. Could dc today. 2. Anemia stable 3. BP is nl Consultation Date/Type/Reason Admit Date/Time Apr 15, 2017 at 07:27 Initial Consult Date 04/15/17 Type of Consultation: Medical Referring Provider: FRANCISCO NIEVES MD Detailed Summary Respiratory: pain, No cough, No shortness of breath Cardiovascular: No chest pain Gastrointestinal: No no complaints Genitourinary: no complaints Musculoskeletal: bone/joint pain (mild right knee pain) Exam/Review of Systems Vital Signs Vitals Vital Signs Date Time Temp Pulse Resp B/P Pulse Ox O2 Delivery O2 Flow Rate FiO2 04/19/17 08:09 98.4 82 22 126/59 92 04/16/17 10:53 Room Air 04/15/17 17:15 2.0 Intake and Output 04/18/17 04/18/17 04/19/17 15:00 23:00 07:00 Intake Total 150 ml 2225 ml 800 ml Balance 150 ml 2225 ml 800 ml Exam Neck: No jvd Respiratory: clear to auscultation Cardiovascular: regular rate and rhythm Gastrointestinal: soft Musculoskeletal: joint tenderness (right knee less swelling and echymoses) Extremities: No edema (and no calf tend) Results Result Diagram: 04/19/17 0430 04/19/17 0430 Results 24 hrs Laboratory Tests Test 04/19/17 04:30 04/19/17 09:30 White Blood Count 7.5 Red Blood Count 3.00 L Hemoglobin 9.0 L Hematocrit 27.6 L Mean Corpuscular Volume 92.0 Mean Corpuscular Hemoglobin 30.0 Mean Corpuscular Hemoglobin Concent 32.6 Red Cell Distribution Width 12.8 Platelet Count 166 Mean Platelet Volume 10.9 H Neutrophils % 69.5 Lymphocytes % 18.4 Monocytes % 9.0 Eosinophils % 2.0 Basophils % 0.4 Nucleated Red Blood Cells % 0.0 Neutrophils # 5.2 Lymphocytes # 1.4 Monocytes # 0.7 Eosinophils # 0.2 Basophils # 0.0 Nucleated Red Blood Cells # 0.0 Sodium Level 135 Potassium Level 4.0 Chloride Level 96 L Carbon Dioxide Level 30 Anion Gap 13 Blood Urea Nitrogen 12 Creatinine 0.68 Glucose Level 117 Calcium Level 8.7 Iron Level 16 L Total Iron Binding Capacity 269 Percent Iron Saturation 6 L Ferritin 77.3 Vancomycin Level Trough 6.1 L Medications Medications Current Medications Lactated Ringer's (Lr) 1,000 ml @ 125 mls/hr Q8H IV Last administered on 05:12; Admin Dose 125 MLS/HR; Start 04/15/17 at 13:12 Celecoxib (Celebrex) 200 mg DAILY PO Last administered on 04/19/17 08:59; Admin Dose 200 MG; Start 04/16/17 at 09:00 Oxycodone HCl (Roxicodone) 5 mg Q4H PRN PO PAIN LEVEL 1-3 Last administered on 04/16/17 20:57; Admin Dose 5 MG; Start 04/15/17 at 13:30 Oxycodone HCl (Roxicodone) 10 mg Q4H PRN PO PAIN LEVEL 4-7 Last administered on 04/19/17 09:13; Admin Dose 10 MG; Start 04/15/17 at 13:30 Hydromorphone HCl (Dilaudid) 1 mg Q3H PRN IV PAIN LEVEL 8-10; Start 04/15/17 at 13:30 Ondansetron HCl (Zofran Inj) 4 mg Q6H PRN IV NAUSEA AND/OR VOMITING; Start at 13:30 Bisacodyl (Dulcolax Supp) 10 mg Q12H PRN [place] CONSTIPATION; Start 04/15/17 at 13: 30 Magnesium Hydroxide (Milk Of Mag) 30 ml BID PRN PO CONSTIPATION; Start at 13:30 Sodium Biphosphate/ Sodium Phosphate (Fleet Enema) 133 ml DAILY PRN [place] CONSTIPATION; Start 04/15/17 at 13:30 Docusate Sodium (Colace) 100 mg BID PO Last administered on 04/19/17 08:59; Admin Dose 100 MG; Start 04/15/17 at 21:00 Diphenhydramine HCl (Benadryl) 25 mg Q6H PRN PO PRURITUS; Start 04/15/17 at 13: 30 Aspirin (Ecotrin) 325 mg BID PO Last administered on 04/19/17 08:59; Admin Dose 325 MG; Start 04/16/17 at 09:00 Pantoprazole (Protonix Tab) 40 mg BID@06,18 PO Last administered on 04/19/17 05 :00; Admin Dose 40 MG; Start 04/15/17 at 18:00 Pregabalin (Lyrica) 50 mg BID PO Last administered on 04/19/17 08:59; Admin Dose 50 MG; Start 04/15/17 at 21:00 Folic Acid (Folic Acid) 0.8 mg DAILY PO Last administered on 04/19/17 08:59; Admin Dose 0.8 MG; Start 04/16/17 at 09:00 Metoprolol Succinate (Toprol Xl) 75 mg DAILY PO Last administered on 04/19/17 09:00; Admin Dose 75 MG; Start 04/16/17 at 09:00 Tamoxifen Citrate (Nolvadex) 10 mg DAILY PO Last administered on 04/19/17 09:11 ; Admin Dose 10 MG; Start 04/16/17 at 09:00 Loratadine (Claritin) 10 mg DAILY PO Last administered on 04/19/17 08:59; Admin Dose 10 MG; Start 04/16/17 at 09:00 Atorvastatin Calcium (Lipitor) 40 mg DAILY@21 PO ; Start 04/15/17 at 21:00 Fluoxetine HCl (Prozac) 10 mg HS PO Last administered on 04/18/17 21:49; Admin Dose 10 MG; Start 04/16/17 at 21:00 Zolpidem Tartrate 5 mg 5 mg HS PRN PO INSOMNIA Last administered on 04/17/17 22:12; Admin Dose 5 MG; Start 04/16/17 at 22:00 Vancomycin HCl/ Sodium Chloride (Vancocin/NS) 150 ml @ 75 mls/hr Q12H IVPB Last administered on 04/18/17 22:04; Admin Dose 75 MLS/HR; Start 04/18/17 at 10 :30 ROMAN ZAMORA MD Apr 19, 2017 10:48
[2017-04-19] MEDS: VANCOMYCIN 750 MG in SOD CHLORIDE 0.9% 150 ML IVPB SCH (11:08)
[2017-04-19] MEDS ORDERED: VANCOMYCIN 1.25 GM in SOD CHLORIDE 0.9% 250 ML IVPB SCH (22:00)
== END 2017-04-19 14:35 | disposition home or self-care (01) | DRG 470 ==
LOC: REC 07:27 → EDSTATUS 10:00 → MS1 16:35
PROVIDERS: ADMIT Orthopaedic Surgery; ATTEND Orthopaedic Surgery
PROC: 0SR9049 Replacement of Right Hip Joint with Ceramic on Polyethylene Synthetic Substitute, Cemented, Open Approach (ICD-10-PCS; principal; 2017-04-15 10:30)
DX: M16.11 Unilateral primary osteoarthritis, right hip (principal); I10 Essential (primary) hypertension; E78.5 Hyperlipidemia, unspecified; E03.9 Hypothyroidism, unspecified; J02.9 Acute pharyngitis, unspecified; D64.9 Anemia, unspecified
CPT/HCPCS: 73560; 80048; 80202; 81001; 82728; 83540; 85014; 85018; 85025; 86850; 86900; 86901; 86920; 87081; 87086; 88304; 88311; 93971; 97110; 97116; 97163; 97166; 97530; C1776; C9290; J0131; J0171; J0735; J1100; J1580; J1885; J2250; J2274; J2405; J2765; J3010; J3370; J7050; J7120

== ENCOUNTER → 2017-04-25 | Outpatient (CLI) | payer MEDICARE, BC ==
[~2017-04-25] MED LIST changes: +ASPI325T32 PO; -BUPIVACAINE LIPOSOME/PF 266 MG/20 ML VIAL INFIL ONE; -CELECOXIB 400 MG PO X1 DOSE PO ONE; +CETI-240 PO; +CRES10 PO; +FLUO10TA PO; +FOL8 PO; -LACTATED RINGER'S 1,000 ML IV SCH; +LEVO88TA42 PO; +METO25TA7 PO; -ONDANSETRON 4 MG INJ IV SCH; +OXYC-481 PO; -PAIN COCKTAIL - VANCOMYCIN IRR ONE; +PANT40TA4 PO; +PREG50CA PO; -PREGABALIN 300 MG PO X1 PO ONE; -SOD CHLORIDE 0.9% IV ONE; +TAMO10TA20 PO; +TRAM50TA2 PO; -TRANEXAMIC ACID 780 MG in SOD CHLORIDE 0.9% 100 ML IVPB ONE; -TRANEXAMIC ACID IV ONE; -VANCOMYCIN 1 GM/NS 250 ML X1 BEFORE INCISION IVPB ONE; +[UNRECOGNIZED DRUG - OTHER] PO; -oxyCODONE (CR) 10 MG TAB [oxyCONTIN] X1 DOSE PO ONE; -traMADOL 50 MG TAB X 1 DOSE PO ONE
--- NOTE | 2017-04-25 11:29 | PN ---
Date/Time of Note Date/Time of Note DATE: 04/25/17 TIME: 11:26 Assessment/Plan VTE Prophylaxis VTE Prophylaxis Intervention: ambulation, other Assessment/Plan Chief Complaint/Hosp Course 10 days status post right total knee arthroplasty Problems: Assessment/Plan The karlos were removed today and Steri-Strips were applied. She is to continue aspirin 325 mg twice daily for DVT prophylaxis. Additionally she is to continue the antibiotics as prescribed and finish them accordingly. Given the right lower extremity soft tissue swelling, we will send her for a stat venous Doppler to rule out DVT. In lieu of this being negative, we will see her back in 2 weeks for repeat evaluation. The patient is to call the office in the meantime if she has any concerns. Subjective 24 Hr Interval Summary Free Text/Dictation The patient presents today for her first postoperative evaluation. She is 10 days status post right total knee arthroplasty. She is doing well overall. Her pain is improving overall, although she does have some soft tissue swelling of her right lower extremity. She is taking Bactrim as prescribed and has 2 more days left of antibiotics. She is also taking tramadol, aspirin, and [place]. She denies any fevers or chills. She is doing physical therapy with home health. She presents today for her first postoperative evaluation. Exam/Review of Systems Exam On exam today, she is alert and oriented 4, in no acute distress. She is ambulated with a front wheel walker. Exam of the incision demonstrates it to be clean dry and intact. [place] are in place. There is moderate soft tissue swelling and ecchymosis of her right lower externally. Range of motion is 0-80 . Varus and valgus forces are stable. There is no erythema or warmth noted. Compartments otherwise soft. She is neurovascularly intact distally. ATA VELEZ PA-C Apr 25, 2017 11:29
--- NOTE | 2017-04-25 14:24 | RADRPT ---
PROCEDURE: Right knee radiographs. CLINICAL INDICATION: Right knee pain. Postop. TECHNIQUE: Two views. Frontal and lateral. COMPARISON: 12/09/2016. FINDINGS: There is no fracture or dislocation. Anterior skin karlos are noted. There is a total right knee arthroplasty which appears satisfactory. There is no lytic or blastic lesion. There is fluid in the knee joint. IMPRESSION: 1. Anterior skin karlos. 2. Fluid in the knee joint. 3. Postoperative changes of the right knee. RPTAT: QQ .Konstantin Hoyt MD, MD Date Time Electronically viewed and signed by .Konstantin Hoyt MD, MD on 04/25/2017 14:24 .R/
== END | disposition home or self-care (01) ==
LOC: HKI 09:57
PROVIDERS: ATTEND Orthopaedic Surgery
DX: Z47.1 Aftercare following joint replacement surgery (principal); Z96.651 Presence of right artificial knee joint; R22.41 Localized swelling, mass and lump, right lower limb

== ENCOUNTER → 2017-05-09 | Outpatient (CLI) | payer MEDICARE, BC | END | disposition home or self-care (01) | LOC: HKI 09:19 | PROVIDERS: ATTEND Orthopaedic Surgery | DX: Z47.1 Aftercare following joint replacement surgery (principal); M17.11 Unilateral primary osteoarthritis, right knee; Z96.651 Presence of right artificial knee joint | CPT/HCPCS: G0463 ==

== ENCOUNTER → 2017-06-06 | Outpatient (CLI) | payer MEDICARE, BC ==
[~2017-06-06] MED LIST changes: +ASPI-664 PO
== END | disposition home or self-care (01) ==
LOC: HKI 08:55
PROVIDERS: ATTEND Orthopaedic Surgery
DX: M17.11 Unilateral primary osteoarthritis, right knee (principal); Z09 Encounter for follow-up examination after completed treatment for conditions other than malignant neoplasm; Z96.651 Presence of right artificial knee joint; I10 Essential (primary) hypertension; E78.5 Hyperlipidemia, unspecified; Z88.0 Allergy status to penicillin